=== PATIENT | male | born 1960 | race Caucasian/White ===

== ENCOUNTER 2023-12-25 12:57 | Emergency (ER) | payer BC, SELFPAY ==
[2023-12-25 13:02] VITALS: BP 145/76; PULSE 102; RESP 18; TEMP 36.6; O2SAT 97
--- NOTE | 2023-12-25 13:17 | ED.URI ---
HPI - URI/Sore Throat General Chief Complaint: Upper Respiratory Infection Stated Complaint: Sinus Congestion/Cough/Fever Time Seen by Provider: 12/25/23 13:17 Source: patient Mode of arrival: ambulatory Limitations: no limitations History of Present Illness HPI Narrative: 63-year-old male presents with complaint nasal congestion, nasal drainage, sore throat, for day. He did home COVID test is morning and it was negative. Denies chest pain or shortness of breath. Afebrile. Has not started any [id number] medications to treat his symptoms. All systems reviewed and negative except as noted above. Related Data Home Medications Medication Instructions Recorded Confirmed atorvastatin 80 mg tablet 80 mg PO DAILY 12/25/23 12/25/23 benazepril 10 mg tablet 10 mg PO BID 12/25/23 12/25/23 cyclobenzaprine 10 mg tablet 10 mg PO BID PRN Muscle Pain 12/25/23 12/25/23 diltiazem HCl 240 mg 240 mg PO DAILY 12/25/23 12/25/23 capsule,extended release 24 hr, controlled (DILT-XR) empagliflozin 25 mg tablet 25 mg PO DAILY 12/25/23 12/25/23 (Jardiance) metformin 1,000 mg tablet 1,000 mg PO BID 12/25/23 12/25/23 tirzepatide 5 mg/0.5 mL 5 mg subcut WEEKLY 12/25/23 12/25/23 subcutaneous pen injector (Naya) triamcinolone acetonide 0.1 % 1 applic topical BID 12/25/23 12/25/23 topical cream Allergies Allergy/AdvReac Type Severity Reaction Status Date / Time No Known Allergies Allergy Unverified 01/01/18 18:15 Review of Systems Review of Systems: CONSTITUTIONAL: Denies fever, chills, or sweats. EYES: Denies visual changes, redness, or discharge. ENT: Reports rhinorrhea, congestion, sore throat. Denies otalgia. CARDIOVASCULAR: Denies chest pain, palpitations, or edema. RESPIRATORY: Reports cough. Denies dyspnea. GASTROINTESTINAL: Denies abdominal pain, nausea, vomiting, or diarrhea. GENITOURINARY: Denies dysuria or hematuria. SKIN: Denies rash or itching. MUSCULOSKELETAL: Denies back pain, joint pain, or myalgia. NEUROLOGIC: Denies headache, numbness, or weakness. PSYCHIATRIC: Denies anxiety or depression. All other systems reviewed are negative, except as documented in HPI. PMFSH Comments At time of signature, agree with nursing past medical, surgical, social and family history. There is no relevant family history pertinent to the presenting complaint. Exam Narrative: GENERAL: This is a well-nourished, well-developed patient, in no apparent distress. HEAD: normocephalic, atraumatic. EYES: PERRL. Sclera clear/white. Vision is grossly intact. EARS: External ears normal, auditory canals clear and without drainage, TMs normal without perforation. Hearing grossly intact. NOSE: External nose normal with nasal drainage, nares without redness, no rhinorrhea. THROAT: Mucous membranes moist, clear postnasal drainage without erythema swelling or exudates. NECK: Neck supple, non-tender without lymphadenopathy, masses or thyromegaly. CARDIOVASCULAR: Regular rate and rhythm without murmurs, gallops, or rubs. RESPIRATORY: Clear to auscultation. Breath sounds equal bilaterally. No wheezes, rales, or rhonchi. SKIN: warm, Dry, intact with no suspicious lesions or rash, good texture and turgor. NEURO: awake, alert, and oriented to person, place and time. There were no obvious focal neurologic abnormalities. EXTREMITIES: No joint tenderness, effusion, or edema noted. Course Course Level of Care: Express Care Visit Vital Signs Vital signs: Vital Signs Temperature 36.6 C 12/25/23 13:02 Pulse Rate 102 H 12/25/23 13:02 Respiratory Rate 18 12/25/23 13:02 Blood Pressure 145/76 H 12/25/23 13:02 Pulse Oximetry 97 12/25/23 13:02 Oxygen Delivery Room Air 12/25/23 13:02 Temperature 36.6 C 12/25/23 13:02 Pulse Rate 102 H 12/25/23 13:02 Respiratory Rate 18 12/25/23 13:02 Blood Pressure 145/76 H 12/25/23 13:02 Pulse Oximetry 97 12/25/23 13:02 Oxygen Delivery Room Air 12/25/23 13:
== END 2023-12-25 13:33 | disposition home or self-care (01) ==
PROVIDERS: Emergency Provider Nurse Practitioner Family
DX: J06.9 Acute upper respiratory infection, unspecified (principal); I10 Essential (primary) hypertension; E11.9 Type 2 diabetes mellitus without complications
CPT/HCPCS: 99202; G0463